=== PATIENT | male | born 1965 | race Caucasian/White ===

== ENCOUNTER → 2017-01-17 | Day surgery (SDC) | payer MEDICARE, MEDICAID ==
[~2017-01-17] VITALS: Ht 165.1 cm; Wt 89.4 kg
[~2017-01-17] MED LIST: ENAL20TA PO; HYDR25TAB PO; INDO25CA PO; LEVO175T2 PO; LIDOCAINE 2% INJ 100 MG/5 ML SDV (FOR ANES.) As Ordered ONE; LIDOCAINE 2% W/ EPINEPHRINE 1.7 ML DENTAL INJ As Ordered ONE; LIPI20TA PO; LR 1,000 ML IV SCH; METO25TA74 PO; METOPROLOL SUCC *XL* 25MG TAB (TopROL *XL*) As Ordered ONE; METOPROLOL SUCC *XL* 25MG TAB (TopROL *XL*) PO ONE; MULT1TAB10 PO; ONDANSETRON 4MG/2ML VIAL (J2405) As Ordered ONE; ONDANSETRON 4MG/2ML VIAL (J2405) IV PRN; PANT40TA2 PO; PERCOCET 5MG/325MG TAB As Ordered ONE; PERCOCET 5MG/325MG TAB PO ONE; POTA1TAB14 PO; PROPOFOL 200 MG/20 ML VIAL As Ordered ONE; SUCCINYLCHOLINE 100 MG/5 ML SYRINGE (J0330) As Ordered ONE; VITA-115 PO; ZYLO300T4 PO; fentaNYL 100 MCG/2 ML INJECTION (J3010) As Ordered ONE; fentaNYL 100 MCG/2 ML INJECTION (J3010) IV PRN
[2017-01-17 12:38] VITALS: BP 132/89
[2017-01-17 18:15] VITALS: BP 171/88
--- NOTE | 2017-01-17 23:12 | RO ---
DATE OF PROCEDURE: 01/17/2017 PREOPERATIVE DIAGNOSES: 1. Mental retardation, diabetes mellitus type 2. 2. Gross caries teeth number 14, 24 and 27. POSTOPERATIVE DIAGNOSES: Status post the above. PROCEDURE PERFORMED: Surgical extraction of teeth number 14, 24 and 27. SURGEON: Josh Ellis DMD, MD MODEL BUILDER DISPLAY: ANESTHESIA: General endotracheal anesthesia via oral ray. SPECIMEN: None. INDICATIONS FOR SURGERY: Shelton is a pleasant 51-year-old male who has presented to my office for evaluation for extraction of teeth number 14, 24 and 27. Clinical and radiographic examination reveals very poor dental condition of the remainder of the teeth. However, his dentist and Shelton's family only want and desire three teeth removed, which are the teeth that he is complaining of pain on a daily basis, namely teeth 14, 24 and 27. Discussion made with the family of the patient and the patient and the most desired route was to have this done in an operating room setting due to his anxiety and uncooperativeness. Complete history and physical and informed consent was explained to the patient and signed and is in the patient's chart. DESCRIPTION OF PROCEDURE: On January 17, 2017, the patient presented to [facility] accompanied by his mother. Any last minute questions were addressed. The history and physical was updated as well as the informed consent. At that point, the patient was then taken back to the operating room and was laid supine on the operating room table. Ulnar nerve protectors were placed. Noninvasive cardiac monitors were applied. At that point, the patient underwent general anesthesia. The patient was intubated with an oral ray which was secured to the patient's cheek. At that point, the patient was prepped and draped in the usual sterile fashion. A time-out procedure was performed to identify the patient, the procedure and any other precautions. No preoperative antibiotics were given. At this point, a moist throat pack was inserted in the patient's oropharynx followed by the administration of 6 carpules of 2% lidocaine with 1:100,000 epinephrine. A 15 blade was then used to make an incision around teeth number 14, 24 and 27. Buccal bone was removed with a Surgairtome from teeth number 14, 24 and 27. At this point, teeth were then luxated and delivered with ease. All the sockets were curetted and irrigated. Gelfoam was placed in each socket and flaps were closed with #3-0 chromic sutures. Gauze hemostasis was easily achieved and observed. At this point, the oral cavity was irrigated, the throat pack was removed and the patient was then extubated without any incident and taken back to the post-anesthesia care unit (PACU). Estimated blood loss: 10 mL. Drains: There were no drains placed. Complications: None.
== END | disposition home or self-care (01) ==
LOC: M SDC 11:14
PROVIDERS: ATTEND Dentist
DX: K02.9 Dental caries, unspecified (principal); F79 Unspecified intellectual disabilities; E11.9 Type 2 diabetes mellitus without complications; I10 Essential (primary) hypertension; E03.9 Hypothyroidism, unspecified; E78.00 Pure hypercholesterolemia, unspecified; M10.9 Gout, unspecified; K21.9 Gastro-esophageal reflux disease without esophagitis; Z79.899 Other long term (current) drug therapy
CPT/HCPCS: 41899; 88300; J0330; J2405; J3010